=== PATIENT | female | born 1945 | race Caucasian/White ===

== ENCOUNTER 2018-03-16 18:30 | Emergency (ER) | payer MEDICARE ==
--- NOTE | 2018-03-16 18:35 | ER Report ---
History and Physical Time Seen By MD: 18:34 HPI/ROS CHIEF COMPLAINT: headache, fall with head injuries and concussion HISTORY OF PRESENT ILLNESS: This is a 72 year old female. She and her are on vacation from [place]. The patient had a couple of falls recently and was seen in the ER at [facility]. They were diagnosed with concussion after workup including CT scans. They saw neurology as well. A couple of days ago, she fell again and landed on her back, hitting the back of her head. She had a small hematoma and abrasion. She continues to have headache, balance issues, difficulty concentrating. There has been a few mornings with some slurred speech. On further questioning, it is unclear if there were any symptoms prior to the first head injury. REVIEW OF SYSTEMS: Constitutional: No fever or chills. Eyes: Has some occasional blurred vision with the concussion. ENT: No sore throat. Does have some sinus congestion recently. Cardiovascular: No chest pain. No palpitations. Respiratory: No cough. No shortness of breath. Gastrointestinal: No abdominal pain. Genitourinary: No dysuria or problems with urination. Musculoskeletal: Mild pain in neck muscles, but no midline pain in neck and no back pain. Skin: No rashes. Neurological: No numbness. No weakness. Allergies: Coded Allergies: ciprofloxacin (Verified Allergy, Unknown, 03/16/18) sulfamethoxazole (Verified Allergy, Unknown, 03/16/18) trimethoprim (Verified Allergy, Unknown, 03/16/18) Reviewed Nurses Notes: Yes Constitutional Vital Sign - Last 24 Hours 03/16/18 03/16/18 03/16/18 03/16/18 18:30 18:36 18:37 18:45 Temp 98.3 Pulse 94 95 Resp 18 B/P (MAP) 150/94 132/84 (100) 150/94 (112) Pulse Ox 94 90 O2 Delivery Room Air 03/16/18 03/16/18 03/16/18 03/16/18 19:00 19:45 20:00 20:15 Pulse 92 88 85 B/P (MAP) 141/88 (105) 159/90 (113) Pulse Ox 88 89 90 91 03/16/18 03/16/18 03/16/18 03/16/18 20:15 21:15 21:30 21:45 Pulse 80 81 81 B/P (MAP) 166/94 (118) Pulse Ox 91 90 90 89 03/16/18 22:00 Pulse 78 B/P (MAP) 152/89 (110) Pulse Ox 89 Physical Exam General Appearance: The patient is alert. No acute distress. Non-toxic in appearance. Eyes: Pupils are equal, round. Reactive to light. No pallor, injection or icterus. Extraocular movements are intact. No nystagmus. ENT: Mucous membranes are moist. Normal oral mucosa. Posterior oropharynx is normal. Normal tympanic membranes and canals. Neck: Supple and non tender. No lymphadenopathy. Respiratory: Breathing easily and unlabored. Lungs are clear to auscultation. Cardiovascular: Regular rate and rhythm. No murmurs, gallops or rubs. Normal capillary refill. No edema. Gastrointestinal: Abdomen is soft and non tender. Nondistended. Normal active bowel sounds. Neurological: Alert and oriented x3. Cranial nerve exam with eye exam as noted above, midline tongue, symmetric palate elevation, no facial weakness or numbness. No focal neurologic deficits in the extremities with normal strength, sensation, reflexes, and coordination. Normal speech pattern. Skin: Warm and dry. No rashes. Has a small occipital scalp hematoma with abrasion. Musculoskeletal: Extremities are nontender. Full range of motion. No tenderness in palpation of the cervical, thoracic and lumbar spine. DIFFERENTIAL DIAGNOSIS: After history and physical exam, differential diagnosis was considered for deficits and symptoms likely due to concussion, but after discussion, with question of symptoms and repeat injury, will get an MRI of the brain with and without contrast Medical Decision Making Data Points Result Diagram: 03/16/18192903/16/181929 Laboratory Hematology Test 03/16/18 19:30 Red Blood Count 4.49 M/uL (4.17-5.56) Mean Corpuscular Volume 95.7 fL (80.0-96.0) Mean Corpuscular Hemoglobin 32.6 pg (26.0-33.0) Mean Corpuscular Hemoglobin Concent 34.1 g/dL (32.0-36.0) Red Cell Distribution Width 13.6 % (11.5-14.5) Mean Platelet Volume 7.1 fL (7.2-11.1) Neutrophils (%) (Auto) 36.5 % (39.4-72.5) Lymphocytes (%) (Auto) 45.4 % (17.6-49.6) Monocytes (%) (Auto) 14.7 % (4.1-12.4) Eosinophils (%) (Auto) 2.0 % (0.4-6.7) Basophils (%) (Auto) 1.4 % (0.3-1.4) Nucleated RBC Relative Count (auto) 0.1 /100WBC Neutrophils # (Auto) 1.5 K/uL (2.0-7.4) Lymphocytes # (Auto) 1.9 K/uL (1.3-3.6) Monocytes # (Auto) 0.6 K/uL (0.3-1.0) Eosinophils # (Auto) 0.1 K/uL (0.0-0.5) Basophils # (Auto) 0.1 K/uL (0.0-0.1) Nucleated RBC Absolute Count (auto) 0.00 K/uL Sodium Level 140 mmol/L (137-145) Potassium Level 3.8 mmol/L (3.5-5.0) Chloride Level 103 mmol/L (98-107) Carbon Dioxide Level 27 mmol/L (22-31) Blood Urea Nitrogen 16 mg/dl (7-18) Creatinine 0.90 mg/dl (0.52-1.04) Glomerular Filtration Rate Calc > 60.0 Random Glucose 109 mg/dl (75-110) Calcium Level 9.0 mg/dl (8.4-10.2) Total Bilirubin 0.2 mg/dl (0.2-1.3) Aspartate Amino Transf (AST/SGOT) 28 U/L (0-35) Alanine Aminotransferase (ALT/SGPT) 34 U/L (0-56) Alkaline Phosphatase 79 U/L (0-126) Total Protein 7.5 g/dl (6.3-8.2) Albumin 4.0 g/dl (3.5-5.0) Chemistry Test 03/16/18 19:30 White Blood Count 4.2 k/uL (4.5-11.0) Red Blood Count 4.49 M/uL (4.17-5.56) Hemoglobin 14.6 g/dL (12.0-16.0) Hematocrit 43.0 % (34.0-47.0) Mean Corpuscular Volume 95.7 fL (80.0-96.0) Mean Corpuscular Hemoglobin 32.6 pg (26.0-33.0) Mean Corpuscular Hemoglobin Concent 34.1 g/dL (32.0-36.0) Red Cell Distribution Width 13.6 % (11.5-14.5) Platelet Count 327 K/uL (150-450) Mean Platelet Volume 7.1 fL (7.2-11.1) Neutrophils (%) (Auto) 36.5 % (39.4-72.5) Lymphocytes (%) (Auto) 45.4 % (17.6-49.6) Monocytes (%) (Auto) 14.7 % (4.1-12.4) Eosinophils (%) (Auto) 2.0 % (0.4-6.7) Basophils (%) (Auto) 1.4 % (0.3-1.4) Nucleated RBC Relative Count (auto) 0.1 /100WBC Neutrophils # (Auto) 1.5 K/uL (2.0-7.4) Lymphocytes # (Auto) 1.9 K/uL (1.3-3.6) Monocytes # (Auto) 0.6 K/uL (0.3-1.0) Eosinophils # (Auto) 0.1 K/uL (0.0-0.5) Basophils # (Auto) 0.1 K/uL (0.0-0.1) Nucleated RBC Absolute Count (auto) 0.00 K/uL Glomerular Filtration Rate Calc > 60.0 Calcium Level 9.0 mg/dl (8.4-10.2) Total Bilirubin 0.2 mg/dl (0.2-1.3) Aspartate Amino Transf (AST/SGOT) 28 U/L (0-35) Alanine Aminotransferase (ALT/SGPT) 34 U/L (0-56) Alkaline Phosphatase 79 U/L (0-126) Total Protein 7.5 g/dl (6.3-8.2) Albumin 4.0 g/dl (3.5-5.0) EKG/Imaging Imaging BRAIN W W/O CONTRAST Comparisons: None. Additional pertinent history: Headaches with falls and dizziness TECHNIQUE: Multiplanar, multisequence brain MRI was performed with and without gadolinium contrast. CONTRAST: 15 ml of MultiHance. FINDINGS: Sagittal midline structures and craniocervical junction: Negative. Midline shift: None. Ventricles: Mild enlargement of the lateral and third ventricles. Otherwise negative Brain parenchyma: Diffusion weighted imaging: Negative. Gradient sequence: Negative. T2 weighted FLAIR images: Scattered regions of abnormal increased T2 signal within the periventricular and subcortical white matter, nonspecific but likely representing small vessel ischemic on a chronic basis. Extra-axial spaces: Moderate cerebral atrophy. Dural venous sinuses and major arterial flow voids: Negative. Intracranial enhancement: Negative.. Mastoid air cells and paranasal sinuses: Negative. Surrounding soft tissues and orbits: Negative. Impression: 1. Age related changes as described above. 2. No evidence of acute intracranial pathology. Report Dictated By: Terrence Ham MD at 03/16/2018 9:24 PM ED Course/Re-evaluation Clinical Indication for ER IV: IV Access ED Course Labs and imaging unremarkable. Discussed the results with the patient. This appears likely due to ongoing symptoms of concussion. Decision to Disposition Date: Mar 16, 2018 Decision to Disposition Time: 21:55 Depart Departure Latest Vital Signs Vital Signs Date Time Temp Pulse Resp B/P (MAP) Pulse Ox O2 Delivery O2 Flow Rate FiO2 03/16/18 22:00 78 152/89 (110) 89 03/16/18 18:30 98.3 18 Room Air Impression: Primary Impression: Concussion Condition: Improved Disposition: HOME OR SELF-CARE Patient Instructions: Concussion (ED), Post Concussion Syndrome (ED) Problem Qualifiers Primary Impression: Concussion Encounter type: initial encounter Loss of consciousness presence/duration: without LOC Qualified Codes: S06.0X0A - Concussion without loss of consciousness, initial encounter PEGGY BANSAL MD Mar 16, 2018 18:34
[2018-03-16 19:40] LABS: PLATELET COUNT, AUTOMATED 327 K/uL (150-450)
[2018-03-16] MEDS ORDERED: GADOBENATE 529MG/1ML 15ML VIAL IVP ONE (20:48)
[2018-03-16] MEDS ORDERED: ACETAMINOPHEN 500 MG TAB PO ONE (21:10)
--- NOTE | 2018-03-16 21:34 | RADIOLOGY IMAGING REPORT ---
FACILITY: [facility] PATIENT NAME: Quynh Cuevas : 1945 MR: [id number] V: [id number] EXAM DATE: ORDERING PHYSICIAN: PEGGY BANSAL TECHNOLOGIST: Location: [facility] [place] Patient: Quynh Cuevas : 1945 Visit/Account:[id number] Date of Sevice: 03/16/2018 BRAIN W W/O CONTRAST Comparisons: None. Additional pertinent history: Headaches with falls and dizziness TECHNIQUE: Multiplanar, multisequence brain MRI was performed with and without gadolinium contrast. CONTRAST: 15 ml of MultiHance. FINDINGS: Sagittal midline structures and craniocervical junction: Negative. Midline shift: None. Ventricles: Mild enlargement of the lateral and third ventricles. Otherwise negative Brain parenchyma: Diffusion weighted imaging: Negative. Gradient sequence: Negative. T2 weighted FLAIR images: Scattered regions of abnormal increased T2 signal within the periventricu lar and subcortical white matter, nonspecific but likely representing small vessel ischemic on a inside sales consultant clara basis. Extra-axial spaces: Moderate cerebral atrophy. Dural venous sinuses and major arterial flow voids: Negative. Intracranial enhancement: Negative.. Mastoid air cells and paranasal sinuses: Negative. Surrounding soft tissues and orbits: Negative. Impression: 1. Age related changes as described above. 2. No evidence of acute intracranial pathology. Report Dictated By: Terrence Ham MD at 03/16/2018 9:24 PM Report E-Signed By: Terrence Ham MD at 03/16/2018 9:31 PM [id number]
[2018-03-16 22:00] VITALS: BP 152/89
== END 2018-03-16 22:18 | disposition home or self-care (01) ==
LOC: ER 18:44
DX: S06.0X0A Concussion without loss of consciousness, initial encounter (principal); W19.XXXA Unspecified fall, initial encounter
CPT/HCPCS: 70553; 85025; 99284; A9270; A9577; 82040; 82247; 82310; 82374; 82435; 82565; 82947; 84075; 84132; 84155; 84295; 84450; 84460; 84520